=== PATIENT | male | born 1930 | race African-American/Black ===

== ENCOUNTER 2017-07-22 11:51 | Emergency (ER) | payer MEDICARE, OTHER ==
[~2017-07-22] VITALS: Ht 172.7 cm; Wt 90.0 kg
[~2017-07-22 11:51] MED LIST: ACTOS45 MG OR; ADLT ASA LOW81 MG OR; BENICAR40 MG OR; FLOMAX0.4 MG OR; MECLIZINE25 MG OR; NEXIUM40 M1 OR; PLAVIX75 MG OR; TOPROL XL50 MG OR; VYTORIN1 TA1 OR
[2017-07-22 12:48] LABS: HEMOGLOBIN 15.1 g/dl (14.0-18.0); IMMATURE GRANULOCYTES 0.3 % (0.0-1.0); MEAN CELL VOLUME 89.5 fL CALC (80.0-100.0); MEAN CORPUSCULAR HGB 30.5 pG CALC (26.0-32.0); MEAN CORPUSCULAR HGB CONC 34.1 g/L CALC (32.0-36.0); NEUT# 3.85 thou/uL (1.82-7.42); RED BLOOD COUNT 4.95 mill/uL (4.70-6.10); RED CELL DISTRI WIDTH 14.2 % (11.5-15.5)
[2017-07-22 12:54] LABS: HEMATOCRIT 44.3 % (39.0-50.0)
[2017-07-22 13:26] LABS: ALBUMIN 3.7 g/dL (3.2-5.0); BILIRUBIN, TOTAL 0.8 mg/dL (0.0-1.4); CREATININE 1.4 mg/dL (0.7-1.3); POTASSIUM 4.3 mmol/l (3.5-5.1); TOTAL PROTEIN 7.3 g/dL (6.3-8.2)
[2017-07-22 13:38] LABS: URINE BILIRUBIN - DIPSTICK NEGATIVE (NEGATIVE); URINE BLOOD DIPSTICK NEGATIVE (NEGATIVE); URINE COLOR YELLOW; URINE GLUCOSE - DIPSTICK NEGATIVE (NEGATIVE); URINE KETONE NEGATIVE (NEGATIVE); URINE LEUK ESTERASE NEGATIVE (NEGATIVE); URINE NITRITE - DIPSTICK NEGATIVE (Negative); URINE PROTEIN - DIPSTICK NEGATIVE (NEG-TRACE); URINE SPECIFIC GRAVITY 1.015; URINE UROBILINOGEN - DIPSTICK 0.2 E.U./dL (0.2)
[2017-07-22 13:39] LABS: URINE CLARITY CLEAR
[2017-07-22 13:55] LABS: TSH, 3RD GENERATION 1.89 uIU/mL (0.47 - 4.68)
[2017-07-22 14:12] VITALS: BP 134/64
== END 2017-07-22 14:12 | disposition home or self-care (01) ==
LOC: ED 11:51
PROVIDERS: Emergency Medicine
DX: R00.2 Palpitations (principal); E11.9 Type 2 diabetes mellitus without complications; Z95.5 Presence of coronary angioplasty implant and graft

== ENCOUNTER → 2018-06-04 | Outpatient (REF) | payer MEDICARE ==
[2018-06-04 13:05] LABS: HEMATOCRIT 44.6 % (39.0-50.0); IMMATURE GRANULOCYTES 0.3 % (0.0-5.0); MEAN CELL VOLUME 89.7 fL CALC (80.0-100.0); MEAN CORPUSCULAR HGB 30.2 pG CALC (26.0-32.0); MEAN CORPUSCULAR HGB CONC 33.6 g/L CALC (32.0-36.0); NEUT# 3.42 thou/uL (1.82-7.42); RED BLOOD COUNT 4.97 mill/uL (4.70-6.10); RED CELL DISTRI WIDTH 14.3 % (11.5-15.5)
[2018-06-04 13:07] LABS: CHOLESTEROL HDL RATIO 3.2 (<4.4 (CALC)); CREATININE 1.4 mg/dL (0.7-1.3); POTASSIUM 4.4 mmol/l (3.5-5.1); TOTAL PROTEIN 7.3 g/dL (6.3-8.2)
[2018-06-04 13:36] LABS: TSH, 3RD GENERATION 2.16 uIU/mL (0.47 - 4.68)
== END | disposition home or self-care (01) ==
LOC: LAB 12:08
PROVIDERS: ATTEND Internal Medicine
DX: D55.9 Anemia due to enzyme disorder, unspecified (principal); E03.9 Hypothyroidism, unspecified; E11.65 Type 2 diabetes mellitus with hyperglycemia; E55.9 Vitamin D deficiency, unspecified; E78.49 Other hyperlipidemia